=== PATIENT | male | born 1980 | race Two or more races ===

== ENCOUNTER 2018-03-24 15:07 | Inpatient (IN) | payer OTHER ==
[~2018-03-24] VITALS: Ht 172.7 cm; Wt 93.4 kg
[2018-03-24] MEDS ORDERED: MORPHINE SULFATE 4 MG/ML SYR/VIAL IV ONE (15:45)
[2018-03-24] MEDS ORDERED: ONDANSETRON HCL 4 MG/2 ML VIAL IV ONE (15:45)
[2018-03-24 16:26] LABS: Basophils # (auto) 0.1 uL; Basophils % (auto) 0.5 % (0.0-2.0); Eosinophils # (auto) 0.1 uL; Eosinophils % (auto) 1.1 % (0.0-7.0); Hemoglobin 15.8 g/dL (13.5-17.5); Lymphocytes # (auto) 0.8 uL; Lymphocytes % (auto) 6.2 % (10.0-50.0); Mean Corpuscular Hemoglobin 30.6 pg (28.0-32.0); Mean Corpuscular Hgb Conc. 33.7 g/dL (32.0-36.0); Mean Corpuscular Volume 90.8 fL (80.0-100.0); Monocytes # (auto) 0.6 uL; Monocytes % (auto) 4.6 % (0.0-12.0); Neutrophils # (auto) 10.8 uL; Neutrophils % (auto) 87.6 % (37.0-80.0); Nucleated Red Blood Cells % 0.1 %; Platelet Count (auto) 224 10^3/uL (140-450); Red Blood Cells 5.17 10^6/uL (4.5-5.90); Red Cell Distribution Width 13.4 % (11.8-14.3); White Blood Cell 12.3 10^3/uL (4.4-10.8)
[2018-03-24 16:35] LABS: Albumin 3.8 g/dL (3.4-5.0); Anion Gap 10 (5-15); Calcium 8.3 mg/dL (8.5-10.1); Carbon Dioxide 23 mmol/L (21-32); Chloride 105 mmol/L (98-107); Glucose 104 mg/dL (74-106); Magnesium 2.4 mg/dL (1.6-2.6); Potassium 3.9 mmol/L (3.5-5.1); Sodium 138 mmol/L (136-145)
[2018-03-24 16:37] LABS: Partial Thromboplastin Time 30.6 sec (23.78-33.04); Prothrombin Time 10.7 sec (9.27-12.13)
[2018-03-24 16:41] LABS: Alanine Aminotransferase 32 U/L (16-61); Alkaline Phosphatase 105 U/L (45-117); Aspartate Aminotransferase 18 U/L (15-37); BUN/Creatinine Ratio 8.2; Bilirubin, Total 0.8 mg/dL (0.2-1.0); Blood Urea Nitrogen 15 mg/dL (7-18); GFR African American 54 mL/min; GFR Non-African American 44 mL/min; Total Protein 8.1 g/dL (6.4-8.2)
[2018-03-24] MEDS ORDERED: cloNIDine HCL 0.1 MG TAB PO ONE (19:45)
[2018-03-24] MEDS ORDERED: NITROGLYCERIN 0.4MG/HR TOPICAL PATCH TD ONE (20:45)
[2018-03-24] MEDS ORDERED: SODIUM CHLORIDE 0.9% 1,000 ML IV ONE (21:45)
[2018-03-24] MEDS ORDERED: IOHEXOL 350 MG/ML 100ML IJ ONE (22:34)
[2018-03-24] MEDS ORDERED: ONDANSETRON HCL 4 MG/2 ML VIAL IV PRN (22:45)
[2018-03-24] MEDS ORDERED: CYCLOBENZAPRINE HCL 10 MG TAB PO PRN (22:45)
[2018-03-24] MEDS ORDERED: cloNIDine HCL 0.1 MG TAB PO PRN (22:45)
[2018-03-24] MEDS ORDERED: ACETAMINOPHEN 325 MG TAB PO PRN (22:45)
[2018-03-24] MEDS ORDERED: TEMAZEPAM 15 MG CAP PO PRN (22:45)
[2018-03-25] VITALS (7 sets, daily range): BP systolic 140–163; BP diastolic 100–112
[2018-03-25] MEDS: HYDROcodone-ACET 5/325MG TAB PO PRN ×3 (00:09→17:00)
--- NOTE | 2018-03-25 00:32 | NUR ---
PATIENT ARRIVED ON FLOOR AT 0030
--- NOTE | 2018-03-25 08:00 | NUR ---
CHEST PAIN PT STATES HE IS 10/10 HAVING CHEST PAIN RADIATING TO LEFT ARM, STATES PAIN IS GREATER UPON MOVEMENT, DESCRIBES PAIN SHARP, DENIES HEAVY LIFTING OF ANY TYPE RECENTLY, OBTAINED VITALS: T98.2, P74, R18, 98%O2 RA, BP157/103, TROPS (NEG) X3, CHEST CT (NEG), NO SOB, NO NITRO ORDERED, PAGED HOSPITALIST, WILL CONTINUE TO MONITOR
--- NOTE | 2018-03-25 08:20 | NUR ---
MD VISIT CURT BARAJAS IN TO EXAMINE PATIENT, NEW ORDER FOR TORADOL X1, PATIENT ADMITS TO LIFTING HEAVY BOXES RECENTLY, PATIENT NOT UPGRADED TO TELE AT THIS TIME, NO ORDER FOR NITRO AT THIS TIME
[2018-03-25] MEDS ORDERED: KETOROLAC TROMETH 30 MG/ML 1ML VIAL IV ONE (08:30)
[2018-03-25] MEDS ORDERED: FAMOTIDINE 20 MG TAB PO SCH (10:00)
[2018-03-25] MEDS ORDERED: amLODIPine BESYLATE 5 MG TAB PO SCH (10:00)
[2018-03-25] MEDS ORDERED: METOPROLOL TARTRATE 25 MG TAB PO SCH (10:00)
--- NOTE | 2018-03-25 14:30 | NUR ---
SPOKE WITH CRAIG FROM [facility] PATIENT WILL BE GOING [facility]. PHONE NUMBER FOR CRAIG [phone]
--- NOTE | 2018-03-25 15:52 | NUR ---
CALLED IN REPORT TO [facility] SPOKE WITH RYAN, PT WILL BE IN ROOM 1222 AT [facility] [place], TELEPHONE NUMBER IS [phone], [facility] IS ACCEPTING , PT WILL TRANSPORT BY [facility] CCT RN
--- NOTE | 2018-03-25 17:39 | NUR ---
Pt being trans to another hosp Order obtained for transfer of SEJAL MALHOTRA to [facility]. Report called/given to RYAN. Report given to EMS transport team. Medication reconciliation form completed and copy given to patient. Transported via gurney along with copied chart and imaging films/disk and all personal belongings. No distress noted at time of departure. IV remains intact, 22G RAC, patient was given norco 5mg for pain and prn dose of clonidine for BP 165/111.
== END 2018-03-25 18:00 | disposition short-term general hospital, planned readmission (82) | DRG 313 ==
LOC: ER 15:10 → OVERFLOW 22:43 → WEST WING 23:58
PROVIDERS: ADMIT Nurse Practitioner; ATTEND Internal Medicine
DX: R07.89 Other chest pain (principal); I10 Essential (primary) hypertension; E66.9 Obesity, unspecified; Z68.31 Body mass index [BMI] 31.0-31.9, adult; Z88.8 Allergy status to other drugs, medicaments and biological substances
CPT/HCPCS: 36415; 71045; 71260; 80053; 83735; 83880; 84484; 85025; 85610; 85730; 93005; 94761; 96361; 96374; 96375; G0378; J1885; J2405